=== PATIENT | male | born 1975 | race Asian ===

== ENCOUNTER 2017-06-17 13:27 | Outpatient (CLI) | payer OTHER ==
[2017-06-17] MEDS ORDERED: NACL ONE (14:03)
--- NOTE | 2017-06-17 15:04 | Cat Scan Report ---
CT UPPER EXTREMITY LEFT SHOULDER WITH CONTRAST INDICATION: Left shoulder pain. COMPARISON: None similar. FINDINGS: Left shoulder CT performed following IV contrast. Axial, sagittal and coronal CT reconstructions demonstrate intact glenohumeral and acromioclavicular articulations. Slight distal clavicular tip degenerative irregularity. Mild glenoid and humeral head degenerative changes, including spurring. Grossly unremarkable surrounding soft tissues and imaged left lung. CONCLUSION: No acute left shoulder CT abnormality with few degenerative changes noted, as above. Thank you for the opportunity to participate in this patient's care.
== END 2017-06-17 13:28 | disposition home or self-care (01) ==
LOC: CT 13:27
PROVIDERS: ATTEND Family Medicine
DX: M19.012 Primary osteoarthritis, left shoulder (principal); N32.89 Other specified disorders of bladder
CPT/HCPCS: 73201; Q9967